=== PATIENT | male | born 1970 | race Caucasian/White ===

== ENCOUNTER 2025-03-16 06:39 | Day surgery (SDC) | payer OTHER ==
[~2025-03-16] VITALS: Ht 185.4 cm; Wt 146.4 kg
[~2025-03-16 06:39] MED LIST: ATOR40TA28 PO; IBUP-1493 PO; LISI1TAB53 PO; METF-1211 PO
[2025-03-16] MEDS ORDERED: MIDAZOLAM HCL 2 MG/2 ML VIAL IVP ONE (06:40)
[2025-03-16] MEDS ORDERED: FentaNYL CITRATE PF 100 MCG/2 ML VIAL IM ONE (06:40)
[2025-03-16] MEDS ORDERED: RINGERS SOLUTION,LACTATED 1,000 ML IV ONE ×2 (06:46→10:52)
[2025-03-16] MEDS: ETHYL ALCOHOL 62% ANTISEPTIC NASAL SANITIZER 0.6 ML AMPUL NASAL ONE (07:29)
[2025-03-16] MEDS: RINGERS SOLUTION,LACTATED 1,000 ML IV ONE (07:30)
[2025-03-16] MEDS: CHLORHEXIDINE GLUCONATE 2% TOWELETTE [2'S/6'S] TP ONE (07:30)
[2025-03-16 07:55] LABS: GLUCOMETER DEV NAME(LOC) SDS.; GLUCOSE,POINT OF CARE 156 MG/DL (70-110)
[2025-03-16] MEDS ORDERED: BUPIVACAINE HCL/PF 0.25% 30 ML VIAL ONE (08:30)
[2025-03-16] MEDS ORDERED: KETOROLAC TROMETHAMINE 60 MG/2 ML VIAL IM ONE (08:50)
[2025-03-16] MEDS ORDERED: SUGAMMADEX SODIUM 200 MG/2 ML VIAL IVP ONE (08:50)
[2025-03-16] MEDS ORDERED: ROCURONIUM BROMIDE 10 MG/ML 5 ML VIAL ONE (08:50)
[2025-03-16] MEDS ORDERED: GLYCOPYRROLATE 0.2 MG/ML VIAL ONE (08:50)
[2025-03-16] MEDS ORDERED: ONDANSETRON HCL 4 MG/2 ML VIAL ONE (08:50)
[2025-03-16] MEDS ORDERED: PROPOFOL 1% 20 ML VIAL IVP ONE ×2 (08:50)
[2025-03-16] MEDS: BUPIVACAINE LIPOSOME/PF 1.3%-13.3MG/ML SUSP 20 ML VIAL INJ ONE (10:52)
[2025-03-16] MEDS ORDERED: OxyCODONE HCL/ACETAMINOPHEN 5-325 MG TABLET ONE (11:53)
[2025-03-16] MEDS: OxyCODONE HCL/ACETAMINOPHEN 5-325 MG TABLET PO ONE (12:13)
== END 2025-03-16 12:55 | disposition home or self-care (01) ==
LOC: SURGERY 06:39
PROVIDERS: ATTEND Specialist
DX: M65.911 Unspecified synovitis and tenosynovitis, right shoulder (principal); M75.01 Adhesive capsulitis of right shoulder; M19.011 Primary osteoarthritis, right shoulder; M25.811 Other specified joint disorders, right shoulder; E11.9 Type 2 diabetes mellitus without complications; E78.5 Hyperlipidemia, unspecified; I10 Essential (primary) hypertension; Z98.890 Other specified postprocedural states; Z86.16 Personal history of COVID-19
CPT/HCPCS: 29824; 29826; 82962; J0666; J1885; J3490 ×4; J2704; J0690; J3010; J1171; J2250; J2405; J7120